=== PATIENT | male | born 1985 | race Caucasian/White ===

== ENCOUNTER 2017-12-03 13:46 | Day surgery (SDC) | payer OTHER ==
[2017-12-03] MEDS ORDERED: LACTATED RINGERS 1,000 ML IV ONE (14:00)
[2017-12-03] MEDS ORDERED: MIDAZOLAM 2 MG/2 ML VIAL IVP ONE (15:11)
[2017-12-03] MEDS ORDERED: fentaNYL 250 MCG/5 ML VIAL IVP ONE (15:11)
[2017-12-03 16:07] VITALS: BP 116/76
== END 2017-12-03 13:47 | disposition home or self-care (01) ==
LOC: SDS 13:46
PROVIDERS: ATTEND Surgery
PROC: 0DBF8ZX Excision of Right Large Intestine, Via Natural or Artificial Opening Endoscopic, Diagnostic (ICD-10-PCS; principal; 2017-12-03 15:15)
DX: K92.1 Melena (principal); K63.5 Polyp of colon; K64.8 Other hemorrhoids; Z80.0 Family history of malignant neoplasm of digestive organs; Z87.891 Personal history of nicotine dependence
CPT/HCPCS: 45384; J3010; J7120; 88305